=== PATIENT | female | born 1990 | race Caucasian/White ===

== ENCOUNTER 2017-11-28 10:34 | Inpatient (IN) | payer OTHER ==
[2017-11-28] MEDS: Lactated Ringer's 1,000 ML IV SCH ×2 (11:20→17:00)
[2017-11-28] MEDS ORDERED: Magnesium Sulfate 20 gm/500 ml 20 GM/500 ML BAG ONE (11:31)
[2017-11-28] MEDS ORDERED: hydrALAZINE 20 MG/ML VIAL ONE (11:31)
[2017-11-28 11:35] LABS: #Basophils 0.1 thou/uL (0.0-0.2); #Eosinphils 0.1 thou/uL (0.0-0.7); #Monocytes 0.5 thou/uL (0.11-0.59); #Neutrophils 5.2 thou/uL (1.40-6.50); %Eosinophils 1.3 % (0.0-10.0); %Lymphocytes 14.4 % (21.0-51.0); %Neutrophils 76.4 % (42.0-75.0); Hemoglobin 12.3 g/dL (12.0-16.0); Mean Corpuscular HGB CONC 34.5 g/dL (32.0-36.0); Mean Corpuscular Hemoglobin 31.7 pg (27.0-31.0); Mean Corpuscular Volume 91.8 fL (78.0-98.0); Mean Platelet Volume 8.1 fL (7.4-10.4); Platelet Count 213 thou/uL (130-400); RBC Distribution Width 13.6 % (11.5-14.5); White Blood Cell (WBC) Count 6.8 thou/uL (4.8-10.8)
[2017-11-28] MEDS: hydrALAZINE 20 MG/ML VIAL SLOW IVP SCH ×2 (11:39→12:52)
[2017-11-28 12:00] LABS: ALT (SGPT) 24 U/L (8-55); AST (SGOT) 17 U/L (5-34); Albumin 3.5 g/dL (3.5-5.0); Alkaline Phosphatase 176 U/L (40-150); Anion Gap 15 mmol/L (10-20); BUN (Urea Nitrogen) 6 mg/dL (7.0-18.7); Bilirubin, Total 0.2 mg/dL (0.2-1.2); Calc. Creatinine Clearance 0 mL/min (70-130); Calcium 9.2 mg/dL (7.8-10.44); Carbon Dioxide 20 mmol/L (22-29); Chloride 106 mmol/L (98-107); Estimated GFR-MDRD Greater than 90; Globulin 2.7 g/dL (2.4-3.5); Glucose 106 mg/dL (70-105); Protein, Total 6.2 g/dL (6.0-8.3); Sodium 137 mmol/L (136-145)
[2017-11-28 12:20] LABS: HBSAg Index 0.19 S/CO (0-0.99); Hep B Surf Ag Non-Reactive S/CO (NonReactive)
[2017-11-28] MEDS ORDERED: Penicillin G Potassium 5 MILL.UNITS VIAL ONE (12:25)
[2017-11-28] MEDS ORDERED: hydrALAZINE 20 MG/ML VIAL SLOW IVP PRN (12:26)
[2017-11-28] MEDS ORDERED: NS w/ Oxytocin 10 units 500 ML ONE (12:26)
[2017-11-28] MEDS ORDERED: Sodium Chloride 0.9% 100 ML ONE (12:26)
[2017-11-28] MEDS ORDERED: Magnesium Sulfate 20 gm/500 ml 6 GM/150 ML BAG IVPB SCH (12:30)
[2017-11-28] MEDS ORDERED: Penicillin G Potassium 5 MILL.UNITS in Sodium Chloride 0.9% 100 ML IVPB SCH (12:30)
[2017-11-28] MEDS ORDERED: NS w/ Oxytocin 10 units 500 ML IVPB SCH (12:30)
[2017-11-28] MEDS ORDERED: CEFAZOLIN/Water 2 GM/20 ML SYRINGE ONE ×2 (12:49→13:57)
[2017-11-28] MEDS ORDERED: CEFAZOLIN/Water 2 GM/20 ML SYRINGE SLOW IVP SCH (13:00)
[2017-11-28 13:12] LABS: Syphilis Antibody Nonreactive (Nonreactive); Syphilis Antibody Index 0.03 S/CO (<1.00 Non-Reactive)
[2017-11-28 13:17] VITALS: BMI 49.1
[2017-11-28] MEDS ORDERED: Morphine PF 1 MG/ML SYR ONE (14:00)
[2017-11-28] MEDS ORDERED: Bupivacaine 0.75% W/DEXTROSE 8.25% 2 ML AMP ONE (14:00)
[2017-11-28] MEDS ORDERED: Lidocaine 1% PF 5 ML VIAL ONE (14:04)
[2017-11-28] MEDS ORDERED: Ondansetron HCl/PF 4 MG/2 ML Vial ONE ×2 (14:09→14:32)
[2017-11-28] MEDS ORDERED: Oxytocin 10 UNITS/ML VIAL ONE (14:09)
[2017-11-28] MEDS ORDERED: PHENYLEPHRINE-NS 100 MCG/ML 10 ML SYRINGE ONE ×2 (14:09→14:32)
[2017-11-28] MEDS ORDERED: Dexamethasone 4 mg/ml Vial ONE (14:09)
[2017-11-28] MEDS ORDERED: Dexamethasone 20 MG/5 ML VIAL ONE (14:32)
[2017-11-28] MEDS ORDERED: Ketorolac Tromethamine 30 MG/ML VIAL ONE ×2 (14:32→14:53)
[2017-11-28 14:36] LABS: Base Excess (BEa) -2.5 mEq/L (-2.0 to +3.0)
[2017-11-28] MEDS ORDERED: HYDROmorphone 2 MG/ML VIAL SLOW IVP PRN (15:04)
[2017-11-28] MEDS ORDERED: Ondansetron HCl/PF 4 MG/2 ML Vial IVP PRN ×2 (15:04)
[2017-11-28] MEDS ORDERED: Promethazine HCl 25 MG SUPP PR PRN (15:04)
[2017-11-28] MEDS ORDERED: Promethazine HCl 25 MG/ML VIAL IM PRN (15:04)
[2017-11-28] MEDS ORDERED: Meperidine HCl/PF 25 MG/ML VIAL SLOW IVP PRN (15:04)
[2017-11-28] MEDS ORDERED: Eucerin (Mineral Oil/Petrolatum,White) 30 gm Jar TOP PRN (15:04)
[2017-11-28] MEDS ORDERED: Naloxone HCl 0.4 mg/ml Vial IVP PRN ×2 (15:04)
[2017-11-28] MEDS ORDERED: Naloxone HCl 0.4 mg/ml Vial IV PRN (15:04)
[2017-11-28] MEDS ORDERED: diphenhydrAMINE 50 MG/ML VIAL IVP PRN (15:04)
[2017-11-28] MEDS ORDERED: Communication Order-Pharmacy FS SCH (15:15)
[2017-11-28] MEDS ORDERED: Ketorolac Tromethamine 30 MG/ML VIAL IVP SCH (15:15)
[2017-11-28] MEDS: CEFAZOLIN/Water 2 GM/20 ML SYRINGE SLOW IVP SCH (19:06)
[2017-11-28] MEDS: Magnesium Sulfate 20 gm/500 ml 20 GM/500 ML BAG IVPB SCH (20:17)
[2017-11-29] MEDS: Ketorolac Tromethamine 30 MG/ML VIAL IVP PRN ×2 (03:07→09:06)
[2017-11-29] MEDS: Magnesium Sulfate 20 gm/500 ml 20 GM/500 ML BAG IVPB SCH (05:53)
[2017-11-29] MEDS: Lactated Ringer's 1,000 ML IV SCH ×2 (05:54→18:12)
[2017-11-29] MEDS: CEFAZOLIN/Water 2 GM/20 ML SYRINGE SLOW IVP SCH (06:31)
[2017-11-29 10:43] LABS: Mean Corpuscular HGB CONC 34.4 g/dL (32.0-36.0); Mean Corpuscular Hemoglobin 31.9 pg (27.0-31.0); Mean Corpuscular Volume 92.5 fL (78.0-98.0); Mean Platelet Volume 7.6 fL (7.4-10.4); Platelet Count 213 thou/uL (130-400); RBC Distribution Width 13.7 % (11.5-14.5); Red Blood Cell (RBC) Count 3.77 mill/uL (4.20-5.40); White Blood Cell (WBC) Count 9.3 thou/uL (4.8-10.8)
[2017-11-29] MEDS: HYDROcodone/Acetaminophen 7.5/325 mg Tablet PO PRN ×2 (12:30→16:50)
[2017-11-29] MEDS ORDERED: Calcium Gluconate 4.6 MEQ in Sodium Chloride 0.9% 100 ML IVPB PRN (17:24)
[2017-11-29] MEDS ORDERED: Simethicone Chewable 80 MG TAB PO PRN (17:24)
[2017-11-29] MEDS ORDERED: hydrALAZINE 20 MG/ML VIAL SLOW IVP PRN (17:24)
[2017-11-29] MEDS ORDERED: diphenhydrAMINE 25 MG CAP PO PRN (17:24)
[2017-11-29] MEDS ORDERED: NS / Oxytocin 40 units/1000ml 1,000 ML IV SCH (17:24)
[2017-11-29] MEDS ORDERED: Magnesium Sulfate 20 gm/500 ml 20 GM/500 ML BAG IVPB SCH (17:24)
[2017-11-29] MEDS ORDERED: Ondansetron HCl/PF 4 MG/2 ML Vial IVP PRN (17:24)
[2017-11-29] MEDS: Ibuprofen 800 MG TAB PO SCH ×2 (18:13→21:14)
[2017-11-29] MEDS: Ferrous Sulfate 325 MG TAB PO SCH ×2 (18:13→21:16)
[2017-11-29] MEDS: Prenatal Vitamin 1 TAB PO SCH (18:13)
[2017-11-29] MEDS: Docusate Calcium (SURFAK) 240 MG CAP PO SCH ×2 (18:14→21:14)
[2017-11-29] MEDS: HYDROcodone/Acetaminophen 5/325 mg Tablet PO PRN (20:27)
[2017-11-30] MEDS: cloNIDine 0.1 MG TAB PO PRN ×2 (01:48→17:34)
[2017-11-30] MEDS: HYDROcodone/Acetaminophen 5/325 mg Tablet PO PRN ×6 (01:55→23:17)
[2017-11-30] MEDS: Ibuprofen 800 MG TAB PO SCH ×3 (05:20→21:46)
[2017-11-30 06:02] LABS: Hemoglobin 11.4 g/dL (12.0-16.0); Mean Corpuscular HGB CONC 34.5 g/dL (32.0-36.0); Mean Corpuscular Hemoglobin 32.2 pg (27.0-31.0); Mean Corpuscular Volume 93.3 fL (78.0-98.0); Mean Platelet Volume 7.6 fL (7.4-10.4); Platelet Count 240 thou/uL (130-400); RBC Distribution Width 13.8 % (11.5-14.5); Red Blood Cell (RBC) Count 3.55 mill/uL (4.20-5.40); White Blood Cell (WBC) Count 8.5 thou/uL (4.8-10.8)
[2017-11-30] MEDS: Lactated Ringer's 1,000 ML IV SCH ×2 (08:54→21:46)
[2017-11-30] MEDS: Prenatal Vitamin 1 TAB PO SCH (10:21)
[2017-11-30] MEDS: Docusate Calcium (SURFAK) 240 MG CAP PO SCH ×2 (10:21→21:46)
[2017-11-30] MEDS: Ferrous Sulfate 325 MG TAB PO SCH ×2 (10:23→21:47)
[2017-12-01] MEDS: HYDROcodone/Acetaminophen 5/325 mg Tablet PO PRN ×3 (04:27→13:26)
[2017-12-01] MEDS: Ibuprofen 800 MG TAB PO SCH ×2 (06:21→13:26)
[2017-12-01] MEDS: Prenatal Vitamin 1 TAB PO SCH (09:19)
[2017-12-01] MEDS: Docusate Calcium (SURFAK) 240 MG CAP PO SCH (09:19)
[2017-12-01] MEDS: Ferrous Sulfate 325 MG TAB PO SCH (09:21)
[2017-12-01] MEDS: Lactated Ringer's 1,000 ML IV SCH (10:46)
[2017-12-01 11:51] VITALS: BP 134/83; TEMP 98
--- NOTE | 2017-12-02 13:01 | OP ---
DATE OF PROCEDURE: 11/28/2017 DATE OF DELIVERY: 11/28/2017 PREOPERATIVE DIAGNOSES: 1. A 38-week . 2. Severe preeclampsia. 3. Nonreassuring status. POSTOPERATIVE DIAGNOSES: 1. A 38-week . 2. Severe preeclampsia. 3. Nonreassuring status. PROCEDURE PERFORMED: Primary low cervical transverse section. SURGEON: Dr. Villegas. INTELLIGENCE OPERATIONS SPECIALIST: Dr. Marshall. INDICATIONS: This is a 27-year-old white female G3, P1 with severely elevated blood pressures, exten ded tachycardia with recurrent late decelerations. DESCRIPTION OF EVENTS: After informed consent was obtained from the patient, she was taken to the op erating room where spinal anesthesia was administered. She was prepped and draped in the usual steri le fashion. A Pfannenstiel incision was created with a #10 scalpel blade and carried down to the [facility]. The fascia was nicked in the midline. Fascial incision was extended transversely with Luna sci ssors. The superior fascial segment was grasped with Kochers and elevated and the underlying rectus muscle dissected free, first bluntly and then sharply. This was repeated with the inferior fascial s egment. The rectus muscles were divided in the midline with blunt dissection. The peritoneum was en tered bluntly. The bladder blade was inserted. The lower uterine segment was entered with a clean # 10 scalpel blade. Hysterotomy was extended superior lateral with blunt dissection. Membranes were r uptured with an Allis. Clear amniotic fluid was noted. The vertex was delivered onto the oper ative field, followed by the remainder of the was delivered uneventfully and atraumatically. The oropharynx and nares were bulb suctioned. The cord was clamped x2 and a vigorous female w as handed to the staff in attendance. The cord blood was obtained. The placenta was manual ly extracted and sent to pathology for review. The uterus was exteriorized and the uterine incision was repaired with a running locking suture of 0 Vicryl in a single full-thickness layer followed by a series of interrupted [id number] sutures of 0 Vicryl along the incision line for hemostasis whi ch was observed. The abdomen was copiously irrigated with saline. Seprafilm was applied to the repa ired uterine incision. The uterus was returned to the abdomen. Hemostasis was again observed. The peritoneum was repaired with a running suture of 3-0 Vicryl. The fascia was repaired with a running suture of 0 PDS. Three interrupted sutures of 3-0 Vicryl were placed subdermally to reapproximate th e skin, which was closed with skin josue. Sponge, needle, and instrument counts were correct x4. She tolerated the procedure well and suffered no acute complications. She was taken to recovery in s table condition and the to the nursery in stable condition. FINDINGS: Viable female infant, 7 pounds 6 ounces, Apgars 8 and 9 at 1 and 5 minutes respectively. COMPLICATIONS: None. SPECIMENS: Placenta to pathology. ESTIMATED BLOOD LOSS: 265 mL
== END 2017-12-01 14:59 | disposition home or self-care (01) | DRG 765 ==
LOC: L&D 10:34 → 3SW 11-29 17:20
PROVIDERS: ADMIT Family Medicine; ATTEND Family Medicine
PROC: 10D00Z1 Extraction of Products of Conception, Low, Open Approach (ICD-10-PCS; principal; 2017-11-28)
DX: O14.14 Severe pre-eclampsia complicating childbirth (principal); Z68.42 Body mass index [BMI] 45.0-49.9, adult; O99.824 Streptococcus B carrier state complicating childbirth; O76 Abnormality in fetal heart rate and rhythm complicating labor and delivery; O99.214 Obesity complicating childbirth; E66.9 Obesity, unspecified; Z3A.38 38 weeks gestation of pregnancy; Z37.0 Single live birth
CPT/HCPCS: 36415; 51702; 80053; 82805; 83735; 85025; 85027; 86780; 86850; 86900; 86901; 87340; 88307; J0360; J1100; J1885; J2001; J2274; J2405; J2540; J2590; J3475; J3490; J7050